=== PATIENT | male | born 1955 | race Caucasian/White ===

== ENCOUNTER 2016-05-04 22:14 | Emergency (ER) | payer MEDICAID ==
[~2016-05-04] VITALS: Ht 175.3 cm; Wt 90.7 kg
[2016-05-04 22:15] VITALS: BP 159/100; PULSE 75; RESP 18; TEMP 98.1; O2SAT 98
--- NOTE | 2016-05-04 22:15 | NUR ---
Patient to ER bed 5 to gown for evaluation. Side rails up. Report given to ANTOINETTE STILES
--- NOTE | 2016-05-04 22:53 | NUR ---
Pt brought in by in stable. Pt c/o right 5th finger laceration s/p crushing accident from [employer] x1 hour ago. Pt stated that he was lifting weights and weight fell on his finger. Pt able to bend right 5th finger. Pt denies any pain at this time. Pt present w/ approx 1 inch lac to right 5th finger w/ +swelling +bleeding. Wrapped pt's finger w/ gauze and advised him to elevate right arm to control bleeding. -sob -chest pain. No acute distress noted at this time, will continue to monitor
--- NOTE | 2016-05-04 23:00 | NUR ---
ER at bedside examining patient.
[2016-05-04] MEDS ORDERED: LIDOCAINE 1% 10 MG/ML, 20 ML MDV IJ ONE (23:15)
[2016-05-04] MEDS ORDERED: BACITRACIN 1 GM OINT TP ONE (23:15)
[2016-05-04] MEDS ORDERED: CEPHALEXIN 500 MG CAPSULE PO ONE (23:45)
--- NOTE | 2016-05-05 00:11 | NUR ---
Dr. Gaffney at bedside for laceration repair.
[2016-05-05 00:46] VITALS: BP 147/88; PULSE 75; RESP 18; TEMP 98.1; O2SAT 98
--- NOTE | 2016-05-05 00:46 | NUR ---
Patient given written and verbal discharge instructions and verbalizes understanding. ER MD Gaffney discussed with patient the results and treatment provided. Patient in stable condition. ID arm band removed. Rx of keflex given. Patient educated on pain management and to follow up with PMD. Pain Scale 0/10. Opportunity for questions provided and answered.
== END 2016-05-05 00:46 | disposition home or self-care (01) ==
LOC: SED 22:14 → EDSEX 22:14 → SED 05-05 00:46
DX: S62.636A Displaced fracture of distal phalanx of right little finger, initial encounter for closed fracture (principal); S61.216A Laceration without foreign body of right little finger without damage to nail, initial encounter; I10 Essential (primary) hypertension; F03.90 Unspecified dementia, unspecified severity, without behavioral disturbance, psychotic disturbance, mood disturbance, and anxiety; F17.200 Nicotine dependence, unspecified, uncomplicated; W20.8XXA Other cause of strike by thrown, projected or falling object, initial encounter; Y93.89 Activity, other specified; Y99.8 Other external cause status; Y92.89 Other specified places as the place of occurrence of the external cause
CPT/HCPCS: 12002; 29130; 73140; 99284; J2001

== ENCOUNTER 2016-05-13 22:16 | Emergency (ER) | payer MEDICAID ==
[~2016-05-13] VITALS: Ht 175.3 cm; Wt 90.7 kg
[2016-05-13 23:39] VITALS: BP 141/75; PULSE 65; RESP 16; TEMP 97.9; O2SAT 99
[2016-05-13] MEDS ORDERED: METF-303 PO (23:43)
[2016-05-13] MEDS ORDERED: LISI-600 PO (23:43)
--- NOTE | 2016-05-14 00:24 | NUR ---
Ashkan javier in ED - 05/14/16 at 0157 by ROMAINE Sutures removed, site cleaned and desinfected. Steristrips applied. Patient educated on home care.
--- NOTE | 2016-05-14 00:25 | NUR ---
Placed in room 02 . Placed on cardiac exercise specialist, blood pressure machine and pulse oximeter. To gown for exam. Side rails up. Report given to GO Damon.
--- NOTE | 2016-05-14 00:32 | NUR ---
ER MD Gaffney at bedside evaluating the patient
--- NOTE | 2016-05-14 00:35 | NUR ---
Patient to ER to have 5 stitches removed. Right hand 5th finger 5 stitches, laceration site is dry, clean, no signs of infection. AAOx4, unlabored breathing, no signs of acute distress.
--- NOTE | 2016-05-14 00:44 | NUR ---
Sutures removed, site cleaned and desinfected. Steristrips applied. Patient educated on home care.
[2016-05-14 00:55] VITALS: BP 134/76; PULSE 71; RESP 16; TEMP 98; O2SAT 97
--- NOTE | 2016-05-14 00:55 | NUR ---
Patient given written and verbal discharge instructions and verbalizes understanding. ER MD Gaffney discussed with patient the results and treatment provided. Patient in stable condition. ID arm band removed. Patient educated on pain management and to follow up with PMD. Pain Scale 0/10. Opportunity for questions provided and answered.
== END 2016-05-14 00:55 | disposition home or self-care (01) ==
LOC: SED 22:16
DX: S61.216D Laceration without foreign body of right little finger without damage to nail, subsequent encounter (principal); I10 Essential (primary) hypertension; Z86.59 Personal history of other mental and behavioral disorders; W22.8XXD Striking against or struck by other objects, subsequent encounter; Y92.89 Other specified places as the place of occurrence of the external cause; Y99.8 Other external cause status
CPT/HCPCS: 99282

== ENCOUNTER 2016-10-05 17:40 | Emergency (ER) | payer MEDICAID ==
[~2016-10-05] VITALS: Ht 177.8 cm; Wt 89.8 kg
[~2016-10-05 17:40] MED LIST: LISI-600 PO; METF-303 PO
[2016-10-05 17:47] VITALS: BP_SYST 143
[2016-10-05 18:30] LABS: BASOPHILS # (AUTO) 0.1 K/uL (0.0-0.2); BASOPHILS % (AUTO) 1.2 % (0.0-2.0); EOSINOPHILS % (AUTO) 0.5 % (0.0-4.0); HEMATOCRIT 53.5 % (36-54); HEMOGLOBIN 17.9 g/dL (14.0-18.0); LYMPHOCYTES # (AUTO) 4.1 K/uL (1.0-5.5); LYMPHOCYTES % (AUTO) 46.4 % (20.5-51.5); MEAN CORPUSCULAR HEMOGLOBIN 30 pg (27-31); MEAN CORPUSCULAR HGB CONC 33 % (32-36); MEAN CORPUSCULAR VOLUME 90 fL (79.0-98.0); MONOCYTES # (AUTO) 0.3 K/uL (0.0-1.0); MONOCYTES % (AUTO) 3.5 % (1.7-9.3); NEUTROPHILS # (AUTO) 4.4 K/uL (1.8-7.7); NEUTROPHILS % (AUTO) 48.4 % (40.0-70.0); PLATELET COUNT (AUTO) 188 K/uL (130-430); RED BLOOD CELL COUNT(AUTO) 5.93 MIL/uL (4.2-6.2); RED CELL DISTRIBUTION WIDTH 13.4 % (9.0-15.0); WHITE BLOOD COUNT (AUTO) 8.9 K/uL (4.8-10.8)
[2016-10-05 18:38] LABS: CALCIUM 8.2 mg/dL (8.4-11.0); CREATININE 0.92 mg/dL (0.55-1.30)
[2016-10-05 20:09] LABS: BARBITURATE, URINE NEGATIVE (NEG <=200); BENZODIAZEPINE, URINE NEGATIVE (NEG <=150); CANNABINOID, URINE NEGATIVE (NEG <=50); COCAINE, URINE NEGATIVE (NEG <=150); METHAMPHETAMINES SCREEN,URINE NEGATIVE (NEG <=500); OPIATE, URINE NEGATIVE (NEG <=100); PHENCYCLIDINE SCREEN,URINE NEGATIVE (NEG <=25); UR TRICYCLIC ANTIDEPRESSANTS NEGATIVE (NEG <=300); URINE AMPHETAMINE NEGATIVE (NEG <=500); URINE METHADONE NEGATIVE (NEG <=200); URINE OXYCODONE SCREEN NEGATIVE (NEG <=100); URINE PROPOXYPHENE SCREEN NEGATIVE (NEG <=300)
== END 2016-10-05 19:10 | disposition home or self-care (01) ==
LOC: SED 17:40
DX: F10.129 Alcohol abuse with intoxication, unspecified (principal); F32.9 Major depressive disorder, single episode, unspecified; F03.90 Unspecified dementia, unspecified severity, without behavioral disturbance, psychotic disturbance, mood disturbance, and anxiety; I10 Essential (primary) hypertension; Z79.899 Other long term (current) drug therapy
CPT/HCPCS: 36415; 80048; 80307; 85025; 99284; G0482

== ENCOUNTER 2017-06-24 21:47 | Emergency (ER) | payer MEDICAID ==
[~2017-06-24] VITALS: Ht 177.8 cm; Wt 90.7 kg
[2017-06-24 21:50] VITALS: BP_SYST 168
[2017-06-24 22:58] LABS: HEMATOCRIT 49.2 % (36-54); HEMOGLOBIN 17.1 g/dL (14.0-18.0); MEAN CORPUSCULAR HEMOGLOBIN 33 pg (27-31); MEAN CORPUSCULAR HGB CONC 35 % (32-36); MEAN CORPUSCULAR VOLUME 93 fL (79.0-98.0); PLATELET COUNT (AUTO) 233 K/uL (130-430); RED BLOOD CELL COUNT(AUTO) 5.28 MIL/uL (4.2-6.2); RED CELL DISTRIBUTION WIDTH 14.5 % (9.0-15.0); WHITE BLOOD COUNT (AUTO) 10.6 K/uL (4.8-10.8)
[2017-06-24 23:00] LABS: CALCIUM 8.5 mg/dL (8.4-11.0); CREATININE 1.06 mg/dL (0.55-1.30)
[2017-06-24 23:06] LABS: INR 1.2 (0.80-1.20); PROTHROMBIN TIME 12.6 SECS (9.5-12.5)
[2017-06-24 23:10] LABS: ALBUMIN 3.9 g/dL (3.4-4.8); TOTAL BILIRUBIN 0.6 mg/dL (0.0-1.0)
[2017-06-24 23:14] LABS: BILIRUBIN,URINE NEGATIVE (NEGATIVE); BLOOD, URINE NEGATIVE (NEGATIVE); CLARITY/URINE CLEAR (CLEAR); COLOR,URINE YELLOW (YELLOW); GLUCOSE,URINE NEGATIVE (NEGATIVE); KETONES,URINE NEGATIVE (NEGATIVE); LEUKOCYTE ESTERASE ,URINE NEGATIVE (NEGATIVE); NITRITE, URINE NEGATIVE (NEGATIVE); PROTEIN URINE NEGATIVE (NEGATIVE); UROBILINOGEN,URINE 0.2 (0.2-1.0)
[2017-06-24 23:31] LABS: BARBITURATE, URINE NEGATIVE (NEG <=200); BENZODIAZEPINE, URINE NEGATIVE (NEG <=150); CANNABINOID, URINE NEGATIVE (NEG <=50); COCAINE, URINE NEGATIVE (NEG <=150); METHAMPHETAMINES SCREEN,URINE NEGATIVE (NEG <=500); OPIATE, URINE NEGATIVE (NEG <=100); PHENCYCLIDINE SCREEN,URINE NEGATIVE (NEG <=25); UR TRICYCLIC ANTIDEPRESSANTS NEGATIVE (NEG <=300); URINE AMPHETAMINE NEGATIVE (NEG <=500); URINE METHADONE NEGATIVE (NEG <=200); URINE OXYCODONE SCREEN NEGATIVE (NEG <=100); URINE PROPOXYPHENE SCREEN NEGATIVE (NEG <=300)
[2017-06-24 23:54] LABS: BAND % (MANUAL) 1 % (0-6); BASOPHILS % (MANUAL) 0 % (0-2); EOSINOPHILS % (MANUAL) 0 % (0-7); LYMPHOCYTES % (MANUAL) 46 % (20-46); MONOCYTES % (MANUAL) 7 % (0-11)
[2017-06-25 01:10] VITALS: BP_SYST 145
== END 2017-06-25 01:10 | disposition home or self-care (01) ==
LOC: SED 21:47
DX: S00.81XA Abrasion of other part of head, initial encounter (principal); S40.211A Abrasion of right shoulder, initial encounter; F10.129 Alcohol abuse with intoxication, unspecified; M54.5 Low back pain; I10 Essential (primary) hypertension; F03.90 Unspecified dementia, unspecified severity, without behavioral disturbance, psychotic disturbance, mood disturbance, and anxiety; F32.9 Major depressive disorder, single episode, unspecified; W19.XXXA Unspecified fall, initial encounter; Y93.89 Activity, other specified; Y92.89 Other specified places as the place of occurrence of the external cause; Y99.8 Other external cause status
CPT/HCPCS: 36415; 72131; 80053; 80307; 81003; 85007; 85027; 85610; 85730; 99285; G0482